=== PATIENT | male | born 1990 | race Caucasian/White ===

== ENCOUNTER 2019-07-27 11:56 | Emergency (ER) | payer OTHER ==
[~2019-07-27] VITALS: Ht 180.3 cm; Wt 75.0 kg
[2019-07-27 12:31] VITALS: BP 122/63
== END 2019-07-27 13:21 | disposition home or self-care (01) ==
LOC: ED 12:50
DX: S60.222A Contusion of left hand, initial encounter (principal); V13.0XXA Pedal cycle driver injured in collision with car, pick-up truck or van in nontraffic accident, initial encounter; Y93.89 Activity, other specified; Y92.410 Unspecified street and highway as the place of occurrence of the external cause; Y99.8 Other external cause status
CPT/HCPCS: 99283

== ENCOUNTER 2019-11-28 07:26 | Emergency (ER) | payer MEDICAID, OTHER ==
[~2019-11-28] VITALS: Ht 180.3 cm; Wt 82.8 kg
[2019-11-28 07:27] VITALS: BP 137/84
[2019-11-28] MEDS ORDERED: LIDOCAINE-MPF 1%, 5ML ONE (07:40)
[2019-11-28] MEDS ORDERED: LIDOCAINE-MPF 1%, 5ML INFIL ONE (08:00)
== END 2019-11-28 08:18 | disposition home or self-care (01) ==
LOC: ED 08:04
DX: K04.7 Periapical abscess without sinus (principal); F17.210 Nicotine dependence, cigarettes, uncomplicated
CPT/HCPCS: 41800; 99284

== ENCOUNTER 2020-01-14 16:44 | Emergency (ER) | payer MEDICAID ==
[~2020-01-14] VITALS: Ht 180.3 cm; Wt 83.7 kg
[2020-01-14 17:00] VITALS: BP 137/95
--- NOTE | 2020-01-14 17:09 | NUR ---
TOOTHACHE X2 DAYS, HAS EMERGENCY DENTAL APPT ON THURSDAY. PAIN IS GETTING INTOLERABLE TO PATIENT AND STATES HE CANNOT CONTROL PAIN WITH TYLENOL AT HOME AND CANNOT SLEEP. EXTENSIVE TOOTH DECAY NOTED ON VISUAL INSPECTION
[2020-01-14] MEDS ORDERED: HYDROcodone/APAP 5/325 TABLET ONE (17:47)
[2020-01-14] MEDS ORDERED: HYDROcodone/APAP 5/325 TABLET PO ONE (18:00)
== END 2020-01-14 18:16 | disposition home or self-care (01) ==
LOC: ED 18:13
DX: K02.9 Dental caries, unspecified (principal); J02.9 Acute pharyngitis, unspecified
CPT/HCPCS: 99283

== ENCOUNTER 2020-01-15 04:34 | Emergency (ER) | payer MEDICAID ==
[~2020-01-15] VITALS: Ht 180.3 cm; Wt 84.0 kg
[2020-01-15 04:38] VITALS: BP 143/97
== END 2020-01-15 05:46 | disposition home or self-care (01) ==
LOC: ED 05:27
DX: K08.89 Other specified disorders of teeth and supporting structures (principal); Z90.89 Acquired absence of other organs
CPT/HCPCS: 99282